=== PATIENT | female | born 1960 | race Caucasian/White ===

== ENCOUNTER 2021-01-16 10:07 | Outpatient (CLI) | payer BC, SELFPAY ==
--- NOTE | ~2021-01-16 | CT_ITS ---
EXAMINATION: CT lung screening DATE: 01/16/2021 10:58 INDICATION: Personal history of tobacco dependence, prior smoker with 30 pack year history TECHNIQUE: Computed tomography (CT) of the chest was performed without intravenous contrast. The dose -length product (DLP) was 275.22 mGy-cm. Automated exposure control and iterative reconstruction tech Scint-X were employed. COMPARISON: None FINDINGS: There is severe emphysema. Calcified pulmonary nodules are consistent with old granulomatou s disease. No suspicious pulmonary nodules are identified. There is mild atelectasis of the right low er lobe. The lungs are free of acute opacities. There is no pleural effusion or pneumothorax. No path ologically enlarged thoracic lymph nodes are identified. The heart size is normal. There is calcified coronary artery atherosclerosis. Subendocardial fat deposition in the left ventricular apex and calc ification of the left ventricular apex are consistent with prior myocardial infarction. IMPRESSION: 1. Lung-RADS category 1: Negative. Continue annual screening with noncontrast low-dose chest CT in 12 months. Reviewed, dictated and finalized at location A. IMPRESSION: 1. Lung-RADS category 1: Negative. Continue annual screening with noncontrast l ow-dose chest CT in 12 months.
== END 2021-01-16 10:08 | disposition home or self-care (01) ==
LOC: ANHIMG 10:12
PROVIDERS: PCP Internal Medicine; Visit Provider Nurse Practitioner
DX: Z12.2 Encounter for screening for malignant neoplasm of respiratory organs (principal); Z87.891 Personal history of nicotine dependence
CPT/HCPCS: 71271

== ENCOUNTER 2021-05-11 01:10 | Day surgery (SDC) | payer BC, SELFPAY ==
[2021-04-27 13:40] VITALS: BMI 32.8
--- NOTE | 2021-05-10 12:38 | PM.HPGS ---
History of Present Illness History of Present Illness Consent: Risks, benefits, and alternatives have been discussed and questions answered. Patient agrees to proceed with procedure. Chief complaint: kohler's esophagus Narrative: Priya Moraes is a 60 year old female who 2 years ago the patient was having a great deal of gastrointestinal issues. She had an EGD and was found have a short segment of Kohler's mucosa. Since then she has been taking pantoprazole 40 mg daily and doing very well. She denies dysphagia. She has raised the head of her bed and she was advised to do at that time as avoid eating before bedtime. Unfortunately she was not successful in losing weight, having actually gained 10 lb since then Review of Systems Review of Systems: All systems reviewed & are unremarkable except as noted in HPI and below PMFSH Family History Family History Mother Lung cancer Asthma Liver cancer Father Hypertension Cerebrovascular accident Social History Social History Smoking packs per day: 0.5 Smoking cigarettes per day: 10.0 Years smoked: 26 Smoking pack-years: 13.00 Smoking status: Former smoker Tobacco type: cigarettes Alcohol intake: current Substance use: never Substance use type: does not use Living arrangements: with family Spiritual care concerns: No Meds Home Medications and Allergies Home Medications Medication Instructions Recorded Confirmed Type albuterol sulfate 90 mcg/actuation 1 puff INHALATION Q4H PRN 04/24/21 05/11/21 History aerosol inhaler aspirin 81 mg tablet,delayed 81 mg PO DAILY 04/24/21 05/11/21 History release atorvastatin 20 mg tablet 20 mg PO DAILY 04/24/21 05/11/21 History fluoxetine 20 mg capsule 20 mg PO DAILY 04/24/21 05/11/21 History hydrochlorothiazide 25 mg tablet 25 mg PO DAILY 04/24/21 05/11/21 History hydrocodone 5 mg-acetaminophen 325 1 tablet PO BID PRN tablet 04/24/21 05/11/21 History mg tablet lisinopril 20 mg tablet 20 mg PO DAILY 04/24/21 05/11/21 History mometasone-formoterol HFA 100 2 puff INHALATION BID g 04/24/21 05/11/21 History mcg-5 mcg/actuation aerosol inhaler pantoprazole 40 mg tablet,delayed 40 mg PO QAM 04/24/21 05/11/21 History release tiotropium bromide 2.5 2 puff INHALATION DAILY g 04/24/21 05/11/21 History mcg/actuation mist for inhalation ccjnnzbv-lnviliq-mska-lutein 1 tablet PO DAILY 04/27/21 05/11/21 History [Centrum Silver Ultra Women's] Allergies Allergy/AdvReac Type Severity Reaction Status Date / Time Penicillins Allergy Severe RASH AND Verified 05/11/21 11:32 SWELLING tetracycline Allergy Severe RASH Verified 05/11/21 11:32 BEE STINGS Allergy Severe ANAPHALACTIC Uncoded 05/11/21 11:32 SHOCK MEPERIDINE HCL Allergy Severe CONVULSIONS Uncoded 05/11/21 11:32 Exam Const: General: alert Orientation/consciousness: patient oriented x3 Resp: Auscultation: clear to auscultation bilaterally Cardio: Rhythm: regular rhythm GI: GI Palp: Yes Soft to palpation and No Tenderness to palpation present (GI) Neuro: General: patient oriented x3 Assessment and Plan Assessment and plan (1) Barretts esophagus: Code(s): K22.70 - Kohler's esophagus without dysplasia Status: Acute Assessment and Plan: EGD with possible biopsy or dilatation or cautery.
[2021-05-11 11:33] VITALS: BP 165/82; PULSE 82; RESP 22; TEMP 36.9; O2SAT 96; BMI 34.2
[2021-05-11] MEDS: LACTATED RINGERS 1,000 ML 150 ML IV CONT (11:37)
--- NOTE | 2021-05-11 12:25 | WPDANESEPPF ---
Anes - Initial Pre Proc Eval Procedure: Operation Date: 05/11/21 13:00 Proposed Procedures p Esophagogastroduodenoscopy - Abimael De La oTrre MD Date/Time: 05/11/21 12:25 Surgeon: Abimael De La Torre MD Pre Op Diagnosis: kohler's esophagus Patient Data Age: 60 Gender: F Height: 1.75 m Weight: 105 kg Last Vital Signs Temp 98.5 F 05/11/21 11:33 Pulse 82 05/11/21 11:33 Resp 22 H 05/11/21 11:33 BP 165/82 H 05/11/21 11:33 Pulse Ox 96 05/11/21 11:33 Allergies Allergy/AdvReac Type Severity Reaction Status Date / Time Penicillins Allergy Severe RASH AND Verified 05/11/21 11:32 SWELLING tetracycline Allergy Severe RASH Verified 05/11/21 11:32 BEE STINGS Allergy Severe ANAPHALACTIC Uncoded 05/11/21 11:32 SHOCK MEPERIDINE HCL Allergy Severe CONVULSIONS Uncoded 05/11/21 11:32 Home Medications Medication Instructions Recorded Confirmed Type albuterol sulfate 90 mcg/actuation 1 puff INHALATION Q4H PRN 04/24/21 05/11/21 History aerosol inhaler aspirin 81 mg tablet,delayed 81 mg PO DAILY 04/24/21 05/11/21 History release atorvastatin 20 mg tablet 20 mg PO DAILY 04/24/21 05/11/21 History fluoxetine 20 mg capsule 20 mg PO DAILY 04/24/21 05/11/21 History hydrochlorothiazide 25 mg tablet 25 mg PO DAILY 04/24/21 05/11/21 History hydrocodone 5 mg-acetaminophen 325 1 tablet PO BID PRN tablet 04/24/21 05/11/21 History mg tablet lisinopril 20 mg tablet 20 mg PO DAILY 04/24/21 05/11/21 History mometasone-formoterol HFA 100 2 puff INHALATION BID g 04/24/21 05/11/21 History mcg-5 mcg/actuation aerosol inhaler pantoprazole 40 mg tablet,delayed 40 mg PO QAM 04/24/21 05/11/21 History release tiotropium bromide 2.5 2 puff INHALATION DAILY g 04/24/21 05/11/21 History mcg/actuation mist for inhalation nnsgxcab-ffxvwav-frix-lutein 1 tablet PO DAILY 04/27/21 05/11/21 History [Centrum Silver Ultra Women's] Patient hx anesthesia problems: none Family hx anesthesia problems: none Results Review: All pre-operative results and documents have been reviewed as part of the pre-operative evaluation. [facility] Family History Family History Mother Lung cancer Asthma Liver cancer Father Hypertension Cerebrovascular accident Social History Social History Smoking packs per day: 0.5 Smoking cigarettes per day: 10.0 Years smoked: 26 Smoking pack-years: 13.00 Smoking status: Former smoker Tobacco type: cigarettes Alcohol intake: current Substance use: never Substance use type: does not use Living arrangements: with family Spiritual care concerns: No Anes - Eval Final PreProcedure Day of Procedure 05/11/21 12:25 Patient weight: obese Heart: regular rate and rhythm Lungs: clear to auscultation Airway: Mallampati scale class III Neurological: alert and oriented Last oral intake: >/= 8 hours ASA classification: III Emergent: no Anesthetic plan: proceed Anesthesia type and monitoring: general GIVS and standard monitoring Results Review: All pre-operative results and documents have been reviewed as part of the pre-operative evaluation. Informed Consent: The patient's anesthetic plan and its attendant risks and benefits were discussed with the patient/family/POA. Questions were solicited and answers provided to the satisfaction of the patient/family/POA.
[2021-05-11 12:59] VITALS: BP 163/81; PULSE 85; RESP 16; O2SAT 96
[2021-05-11 13:09] VITALS: BP 169/91; PULSE 69; RESP 20; O2SAT 100
[2021-05-11 13:19] VITALS: BP 144/84; PULSE 72; RESP 17; O2SAT 98
== END 2021-05-11 13:30 | disposition home or self-care (01) ==
PROVIDERS: PCP Internal Medicine; Visit Provider Internal Medicine Gastroenterology
PROC: 0DJ08ZZ Inspection of Upper Intestinal Tract, Via Natural or Artificial Opening Endoscopic (ICD-10-PCS; CPT 43235; principal; 2021-05-11 13:00)
DX: K22.70 Barrett's esophagus without dysplasia (principal); K20.90 Esophagitis, unspecified without bleeding; Z79.82 Long term (current) use of aspirin; Z79.51 Long term (current) use of inhaled steroids; Z87.891 Personal history of nicotine dependence; E66.9 Obesity, unspecified; Z68.34 Body mass index [BMI] 34.0-34.9, adult
CPT/HCPCS: 43239; 88305; J2704; J7120

== ENCOUNTER 2024-03-24 01:36 | Day surgery (SDC) | payer BC, SELFPAY ==
[2024-03-12 12:07] VITALS: BMI 29.2
--- NOTE | 2024-03-12 12:30 | PC.NURSE ---
Spoke with patient regarding medication Eliquis. Pt. verbalizes understanding that the last dose of Eliquis is to be taken on 03/21/2024 and the Endoscopist will instruct them when to restart after the procedure.
[2024-03-24 10:21] VITALS: BP 154/70; PULSE 77; RESP 20; TEMP 36.1; O2SAT 96; BMI 32.1
[2024-03-24] MEDS: LACTATED RINGERS 1,000 ML 150 ML IV CONT (10:41)
--- NOTE | 2024-03-24 10:48 | WPDANESEPPF ---
Anes - Initial Pre Proc Eval Procedure: Operation Date: 03/24/24 11:00 Proposed Procedures p Esophagogastroduodenoscopy&Screen Colon - Ravi Ybarra MD Date/Time: 03/24/24 10:48 Surgeon: Ravi Ybarra MD Pre Op Diagnosis: Hernández's esophagus, Neoplasm screening Patient Data Age: 63 Gender: F Height: 1.75 m Weight: 98.6 kg Last Vital Signs Temp 36.1 C L 03/24/24 10:21 Pulse 77 03/24/24 10:21 Resp 20 03/24/24 10:21 BP 154/70 H 03/24/24 10:21 Pulse Ox 96 03/24/24 10:21 O2 Del Method Room Air 03/24/24 10:21 Allergies Allergy/AdvReac Type Severity Reaction Status Date / Time bee venom protein (honey bee) Allergy Severe Anaphylactic Verified 03/24/24 10:18 [bees] Shock meperidine Allergy Severe CONVULSIONS Verified 03/24/24 10:18 Penicillins Allergy Severe RASH AND Verified 03/24/24 10:18 SWELLING tetracycline Allergy Severe RASH Verified 03/24/24 10:18 Home Medications Medication Instructions Recorded Confirmed Type albuterol sulfate 90 mcg/actuation 1 puff inhalation Q4H PRN 04/24/21 03/24/24 History aerosol inhaler (ProAir HFA) Shortness Of Breath Or Wheezing fluoxetine 20 mg capsule 20 mg PO DAILY 04/24/21 03/24/24 History hydrochlorothiazide 25 mg tablet 25 mg PO DAILY 04/24/21 03/24/24 History hydrocodone 5 mg-acetaminophen 325 1 tablet PO BID PRN Pain 04/24/21 03/24/24 History mg tablet lisinopril 20 mg tablet 20 mg PO DAILY 04/24/21 03/24/24 History pantoprazole 40 mg tablet,delayed 40 mg PO QAM 04/24/21 03/24/24 History release (Protonix) wdgdcjbu-psgupou-fikq-lutein tablet 1 tablet PO DAILY 04/27/21 03/24/24 History apixaban 5 mg tablet (Eliquis) 5 mg PO BID 04/22/23 03/24/24 History atorvastatin 20 mg tablet 80 mg PO DAILY 04/22/23 03/24/24 History diltiazem HCl 60 mg 60 mg PO BID 04/22/23 03/24/24 History capsule,extended release 12 hr flecainide 100 mg tablet 100 mg PO Q12H 04/22/23 03/24/24 History magnesium oxide 400 mg PO BID 04/22/23 03/24/24 History mometasone-formoterol HFA 100 2 puff inhalation QID 04/22/23 03/24/24 History mcg-5 mcg/actuation aerosol inhaler (Dulera) tiotropium bromide 2.5 2 puff inhalation BID 04/22/23 03/24/24 History mcg/actuation mist for inhalation (Spiriva Respimat) Patient hx anesthesia problems: none Family hx anesthesia problems: none Results Review: All pre-operative results and documents have been reviewed as part of the pre-operative evaluation. [facility] Past Medical History Medical History (Updated 03/24/24 @ 10:49 by Mikey Coker MD) Asthma COPD (chronic obstructive pulmonary disease) Hypertension Surgical History Surgical History (Updated 03/24/24 @ 10:49 by Mikey Coker MD) H/O colonoscopy History of esophagogastroduodenoscopy (EGD) Family History Family History Mother Lung cancer Asthma Liver cancer Father Hypertension Cerebrovascular accident Social History Social History Smoking packs per day: 0.5 Smoking cigarettes per day: 10.0 Years smoked: 25 Smoking pack-years: 12.50 Smoking status: Former smoker Tobacco type: cigarettes Alcohol intake: current Alcohol use details: Socially Substance use: never Substance use type: does not use Do You Feel Safe in your Home?: Yes Lack of Transportation: No Lack of Food: Never True Current Housing: I Have Housing Concerned About Future Housing: No Difficulty Paying Gas/Electric Bills: No Difficulty Paying for Meds: No Currently Unemployed: No Education: Associate Degree Difficulty w/ Childcare or Family Care: No Living arrangements: with family Gender identity (if verbalized by the patient): Female Spiritual care concerns: No Anes - Eval Final PreProcedure Day of Procedure 03/24/24 10:48 Patient weight: obese Heart: regular rate
--- NOTE | 2024-03-24 10:54 | PM.HPGS ---
History of Present Illness History of Present Illness Consent: Risks, benefits, and alternatives have been discussed and questions answered. Patient agrees to proceed with procedure. Chief complaint: Hernández's esophagus, Neoplasm screening Narrative: Priya Moraes is a 63 year old female with h/o Hernández's and colon polyp, last egd 2020 and colonoscopy 5 years ago Review of Systems Review of Systems: All systems reviewed & are unremarkable except as noted in HPI and below PMFSH Past Medical History Medical History (Updated 03/24/24 @ 10:58 by Ravi Ybarra MD) Asthma Colon polyp COPD (chronic obstructive pulmonary disease) Hypertension Surgical History Surgical History (Updated 03/24/24 @ 10:49 by Mikey Coker MD) H/O colonoscopy History of esophagogastroduodenoscopy (EGD) Family History Family History Mother Lung cancer Asthma Liver cancer Father Hypertension Cerebrovascular accident Social History Social History Smoking packs per day: 0.5 Smoking cigarettes per day: 10.0 Years smoked: 25 Smoking pack-years: 12.50 Smoking status: Former smoker Tobacco type: cigarettes Alcohol intake: current Alcohol use details: Socially Substance use: never Substance use type: does not use Do You Feel Safe in your Home?: Yes Lack of Transportation: No Lack of Food: Never True Current Housing: I Have Housing Concerned About Future Housing: No Difficulty Paying Gas/Electric Bills: No Difficulty Paying for Meds: No Currently Unemployed: No Education: Associate Degree Difficulty w/ Childcare or Family Care: No Living arrangements: with family Gender identity (if verbalized by the patient): Female Spiritual care concerns: No Meds Home Medications and Allergies Home Medications Medication Instructions Recorded Confirmed Type albuterol sulfate 90 mcg/actuation 1 puff inhalation Q4H PRN 04/24/21 03/24/24 History aerosol inhaler (ProAir HFA) Shortness Of Breath Or Wheezing fluoxetine 20 mg capsule 20 mg PO DAILY 04/24/21 03/24/24 History hydrochlorothiazide 25 mg tablet 25 mg PO DAILY 04/24/21 03/24/24 History hydrocodone 5 mg-acetaminophen 325 1 tablet PO BID PRN Pain 04/24/21 03/24/24 History mg tablet lisinopril 20 mg tablet 20 mg PO DAILY 04/24/21 03/24/24 History pantoprazole 40 mg tablet,delayed 40 mg PO QAM 04/24/21 03/24/24 History release (Protonix) rmheieuy-opehwuz-xbdz-lutein tablet 1 tablet PO DAILY 04/27/21 03/24/24 History apixaban 5 mg tablet (Eliquis) 5 mg PO BID 04/22/23 03/24/24 History atorvastatin 20 mg tablet 80 mg PO DAILY 04/22/23 03/24/24 History diltiazem HCl 60 mg 60 mg PO BID 04/22/23 03/24/24 History capsule,extended release 12 hr flecainide 100 mg tablet 100 mg PO Q12H 04/22/23 03/24/24 History magnesium oxide 400 mg PO BID 04/22/23 03/24/24 History mometasone-formoterol HFA 100 2 puff inhalation QID 04/22/23 03/24/24 History mcg-5 mcg/actuation aerosol inhaler (Dulera) tiotropium bromide 2.5 2 puff inhalation BID 04/22/23 03/24/24 History mcg/actuation mist for inhalation (Spiriva Respimat) Allergies Allergy/AdvReac Type Severity Reaction Status Date / Time bee venom protein (honey bee) Allergy Severe Anaphylactic Verified 03/24/24 10:18 [bees] Shock meperidine Allergy Severe CONVULSIONS Verified 03/24/24 10:18 Penicillins Allergy Severe RASH AND Verified 03/24/24 10:18 SWELLING tetracycline Allergy Severe RASH Verified 03/24/24 10:18 Vital Signs Vital Signs - 24 hr 03/24/24 10:21 Temperature 96.9 F L Pulse Rate 77 Respiratory Rate 20 Blood Pressure 154/70 H Pulse Oximetry 96 Oxygen Delivery Room Air Exam Const: General: comfortable and no acute distress HENMT: Face/Nose/Sinus: Normal nares present Eyes: General: appearance normal, both eyes and al
--- NOTE | 2024-03-24 11:08 | SUR.OPER ---
EGD end 1107 Colonoscopy start 1110
[2024-03-24 11:23] VITALS: BP 126/59; PULSE 78; RESP 21; O2SAT 95
[2024-03-24 11:33] VITALS: BP 114/58; PULSE 71; RESP 24; O2SAT 99
[2024-03-24 11:43] VITALS: BP 128/55; PULSE 71; RESP 21; O2SAT 97
== END 2024-03-24 11:53 | disposition home or self-care (01) ==
PROVIDERS: PCP Internal Medicine; Referring Provider Internal Medicine Gastroenterology; Visit Provider Internal Medicine Gastroenterology
PROC: 0DJ08ZZ Inspection of Upper Intestinal Tract, Via Natural or Artificial Opening Endoscopic (ICD-10-PCS; CPT 43235; principal; 2024-03-24 11:00)
DX: Z12.11 Encounter for screening for malignant neoplasm of colon (principal); D12.2 Benign neoplasm of ascending colon; D12.3 Benign neoplasm of transverse colon; K22.70 Barrett's esophagus without dysplasia; K44.9 Diaphragmatic hernia without obstruction or gangrene; I10 Essential (primary) hypertension; J44.9 Chronic obstructive pulmonary disease, unspecified; E66.9 Obesity, unspecified; Z68.32 Body mass index [BMI] 32.0-32.9, adult; Z79.51 Long term (current) use of inhaled steroids; Z79.891 Long term (current) use of opiate analgesic; Z79.01 Long term (current) use of anticoagulants; Z98.890 Other specified postprocedural states; Z87.891 Personal history of nicotine dependence; Z86.0100 Personal history of colon polyps, unspecified; Z80.1 Family history of malignant neoplasm of trachea, bronchus and lung; Z80.0 Family history of malignant neoplasm of digestive organs; Z82.49 Family history of ischemic heart disease and other diseases of the circulatory system
CPT/HCPCS: 43239; 88305; J7120

== ENCOUNTER 2024-12-31 11:18 | Outpatient (CLI) | payer BC, SELFPAY ==
--- NOTE | ~2024-12-31 | CT_ITS ---
Noncontrast CT scan of the right shoulder CLINICAL HISTORY: Pain TECHNIQUE: Axial noncontrast imaging of the right shoulder was performed. Sagittal and coronal reform atted images were performed. Dose reduction technique was used on this scan by utilizing automated ex posure control and iterative reconstruction technique. The dose-length product (DLP) was 419.53 mGy-c m. Findings: No acute fracture or dislocation is seen. There is advanced AC joint degenerative change wi th joint space narrowing and bony productive change. There is also advanced glenohumeral joint osteoa rthrosis, joint space narrowing and mild reactive sclerosis, as well as remodeling of the medial aspe ct of the humeral head with flattening of its overall morphology. Humeral head is high riding, sugges tive of underlying full-thickness rotator cuff tear. There is a crescentic maturely ossified area michael ng the posterior aspect of the humeral head now measuring 1.8 x 2.1 x 0.4 cm in size (axial image 21 for example, sagittal image 25 for example). Probable moderate glenohumeral joint effusion present. No gross muscle atrophy evident. No other soft tissue mass or fluid collection identified. IMPRESSION: High riding humeral head suggests underlying full-thickness rotator cuff tear. Advanced glenohumeral and AC joint degenerative change, as detailed above. 1.8 x 2.0 x 0.4 cm crescentic area of mature ossification along the posterior margin of the humeral h ead, which could reflect nonspecific heterotopic ossification or possibly myositis ossificans. Moderate glenohumeral joint effusion. Reviewed, dictated and finalized at location . IMPRESSION: High riding humeral head suggests underlying full-thickness rotator cuff tear. Advanced glenohumeral and AC joint degenerative change, as detailed above. 1.8 x 2.0 x 0.4 cm crescentic area of mature ossification along the posterior m argin of the humeral head, which could reflect nonspecific heterotopic ossifica tion or possibly myositis ossificans. Moderate glenohumeral joint effusion.
== END 2024-12-31 11:19 | disposition home or self-care (01) ==
LOC: MICIMG 11:18
PROVIDERS: PCP Internal Medicine; Visit Provider Orthopaedic Surgery
DX: M25.411 Effusion, right shoulder (principal); M19.011 Primary osteoarthritis, right shoulder
CPT/HCPCS: 73200